=== PATIENT | male | born 1975 | race Caucasian/White ===

== ENCOUNTER 2021-01-12 14:42 | Emergency (ER) | payer OTHER ==
[~2021-01-12] VITALS: Ht 170.2 cm; Wt 77.3 kg
[2021-01-12] MEDS ORDERED: LIDOCAINE 1% 10 ML VIAL SQ ONE (15:45)
[2021-01-12] MEDS ORDERED: AMOX TR/POT CLAV 875 MG/125 MG TABLET PO ONE (16:15)
[2021-01-12] MEDS ORDERED: IBUPROFEN 600 MG TABLET PO ONE (16:15)
[2021-01-12 16:34] VITALS: BP 120/74
== END 2021-01-12 16:39 | disposition home or self-care (01) ==
LOC: EMS 14:47
DX: S01.511A Laceration without foreign body of lip, initial encounter (principal); W26.8XXA Contact with other sharp object(s), not elsewhere classified, initial encounter; Y93.89 Activity, other specified; Y92.89 Other specified places as the place of occurrence of the external cause; Y99.0 Civilian activity done for income or pay
CPT/HCPCS: 12011; 99283; J3490